=== PATIENT | male | born 1985 | race Caucasian/White ===

== ENCOUNTER 2016-07-04 08:29 | Emergency (ER) | payer OTHER ==
[2016-07-04 08:47] VITALS: BP 118/83
--- NOTE | 2016-07-04 09:30 | ER Document Report ---
ED Headache - General Mode of Arrival: Ambulatory Information source: Patient TRAVEL OUTSIDE OF THE [place] IN LAST 30 DAYS: No - HPI Patient complains to provider of: Headache Onset: Other - Refer to HPI notes Associated symptoms: Dizzy, Nausea/vomiting Similar symptoms previously: No Recently seen / treated by doctor: No - General Chief Complaint: Headache Stated Complaint: HEADACHE,VOMITING Time Seen by Provider: 07/04/16 09:20 Notes: Patient is a 31-year-old male presenting to the emergency department for a headache and bilateral nosebleed. Patient states for the last few days he has woken up with some congestion. Patient has dizziness and intermittent vomiting (mostly in the mornings) over the last 3 days. Patient does not have a history of frequent nosebleeds. Patient states his headache was allover but is not more in the frontal aspect of his head. 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 Patient has a history of PTSD and states he started a new medication for such 1 month ago. (PALMER BUSBY) - Related Data Allergies/Adverse Reactions: No Known Allergies Allergy (Verified 07/04/16 09:30) Past Medical History - General Information source: Patient - Social History Smoking Status: Never Smoker Cigarette use (# per day): No Chew tobacco use (# tins/day): No Frequency of alcohol use: Occasional Drug Abuse: None Family History: None Patient has suicidal ideation: No Patient has homicidal ideation: No Psychiatric Medical History: Reports: Hx Post Traumatic Stress Disorder Surgical Hx: Negative - Immunizations Hx Diphtheria, Pertussis, Tetanus Vaccination: Yes Review of Systems - Review of Systems Constitutional: No symptoms reported EENT: See HPI, Nose congestion, Nose discharge Cardiovascular: See HPI, Dizziness Respiratory: No symptoms reported Gastrointestinal: See HPI, Nausea, Vomiting Genitourinary: No symptoms reported Male Genitourinary: No symptoms reported Musculoskeletal: No symptoms reported Skin: No symptoms reported Hematologic/Lymphatic: No symptoms reported Neurological/Psychological: See HPI, Headaches -: Yes All other systems reviewed and negative Physical Exam - Vital signs Vitals: Temp Pulse Resp BP Pulse Ox 97.7 F 74 18 118/83 96 07/04/16 08:44 07/04/16 08:44 07/04/16 08:44 07/04/16 08:44 07/04/16 08:44 - Notes Notes: GENERAL: Alert, interacts well. No acute distress. HEAD: Normocephalic, atraumatic. EYES: Pupils equal, round, and reactive to light. Extraocular movements intact. ENT: Oral mucosa moist, tongue midline. Bulging TMs with fluid behind bilaterally. Clear rhinorrhea bilaterally, turbinate edema on the right, no edema on the left, trace bleeding of the nasal septum on the left. Post nasal drip but no bleeding to the oropharynx. NECK: Full range of motion. Supple. Trachea midline. LUNGS: No respiratory distress. HEART: Regular rate. EXTREMITIES: Moves all 4 extremities spontaneously. No edema. NEUROLOGICAL: Alert and oriented x3. Normal speech. PSYCH: Normal affect, normal mood. SKIN: Warm, dry, normal turgor. No rashes or lesions noted. (PALMER BUSBY) Course - Re-evaluation Re-evalutation: 07/04/16 09:35 Consistent with viral upper respiratory infection, no evidence of ataxia on examination, no neurologic deficits. Edematous turbinates with trace superficial bleeding and bulging tympanic membranes all consistent with allergies versus viral upper respiratory infection as cause for headache, epistaxis and dizziness. Treat with nasal steroids, nasal saline rinses and decongestions as well as Antivert. (FAHAD CHAVEZ) - Vital Signs Vital signs: Temp Pulse Resp BP Pulse Ox 97.7 F 74 18 118/83 96 07/04/16 08:44 07/04/16 08:44 07/04/16 08:44 07/04/16 08:44 07/04/16 08:44 Discharge - Discharge Clinical Impression: Viral upper respiratory tract infection, Epistaxis, Vertigo Condition: Stable Disposition: HOME, SELF-CARE Instructions: Upper Respiratory Illness ([facility]) Additional Instructions: Please use nasal saline rinses such as a NetiPot or NeilMed Sinus Rinses. Please use ibuprofen (Motrin or Advil) 600-800 mg every 8 hours as needed for pain or fever. You may also use acetaminophen (Tylenol) 1000 mg every 4-6 hours as needed for pain or fever. Please be aware that many medications contain acetaminophen, do not exceed a total of 1000 mg of acetaminophen every 6 hours. You should also use a nasal steroid such as Flonase or Nasonex 1 spray per nostril twice a day as needed to decongest your self. This can slightly worsening or nosebleeds. Do not worry unless after holding pressure for 15 minutes your nosebleed does not stop. It is normal for your nosebleed to recur throughout the day including after blowing your nose. Take the Antivert to help with your congestion and your dizziness. Prescriptions: Meclizine HCl [Antivert 25 mg Tablet] 25 mg PO TID PRN #21 tablet PRN Reason: Mometasone Furoate [Nasonex] 17 gm NS BID #1 spray.pump Scribe Attestation: 07/04/16 20:48 I personally performed the services described in the documentation, reviewed and edited the documentation which was dictated to the scribe in my presence, and it accurately records my words and actions. (FAHAD CHAVEZ) Scribe Documentation - Scribe Written by Moise:: Moise Malone, 07/04/16 10:47 acting as scribe for :: Quentin
== END 2016-07-04 09:43 | disposition home or self-care (01) ==
LOC: ER 08:29
DX: J06.9 Acute upper respiratory infection, unspecified (principal); B97.89 Other viral agents as the cause of diseases classified elsewhere; R04.0 Epistaxis; R51 Headache; R42 Dizziness and giddiness; J34.89 Other specified disorders of nose and nasal sinuses; R09.81 Nasal congestion; F43.10 Post-traumatic stress disorder, unspecified; Z79.899 Other long term (current) drug therapy
CPT/HCPCS: 99283